=== PATIENT | male | born 1985 | race Hispanic/Latino ===

== ENCOUNTER 2018-02-22 17:25 | Emergency (ER) | payer SELFPAY ==
[2018-02-22] MEDS ORDERED: HYDROcodone/Acetaminophen 10/325 mg Tablet ONE (18:51)
[2018-02-22] MEDS ORDERED: Adacel (T-DAP) 0.5 ML VIAL ONE (18:51)
== END 2018-02-22 19:10 | disposition home or self-care (01) ==
LOC: ERS 17:25
DX: S61.052A Open bite of left thumb without damage to nail, initial encounter (principal); S61.012A Laceration without foreign body of left thumb without damage to nail, initial encounter; F17.210 Nicotine dependence, cigarettes, uncomplicated; W54.0XXA Bitten by dog, initial encounter
CPT/HCPCS: 90471; 90715; 99406